=== PATIENT | female | born 1960 | race Caucasian/White ===

== ENCOUNTER 2016-11-13 06:27 | Emergency (ER) | payer MEDICAID, OTHER ==
[2016-11-13] VITALS (7 sets, daily range): BP systolic 128–187; BP diastolic 77–93; PULSE 73–86; RESP 16–22; TEMP 97.8–98.4; O2SAT 97–99
[~2016-11-13] VITALS: Ht 165.1 cm; Wt 55.0 kg
[~2016-11-13 06:27] MED LIST: LORA-373 PO; MEGE40SU PO; MORP1TAB24 PO; OMEP20TA PO; ONDA1TAB16; OXYC-392 PO; PERI8.6T PO; PROC10TA PO; RANI150T PO; VENTAER INH; [UNRECOGNIZED DRUG - OTHER] SWISH-SWAL
[2016-11-13] MEDS ORDERED: ONDANSETRON HCL 4 MG/2 ML VIAL IV ONE (06:45)
[2016-11-13] MEDS ORDERED: MORPHINE SULFATE 30 MG CONTROLLED RELEASE TAB PO ONE (06:45)
[2016-11-13] MEDS ORDERED: SODIUM CHLORID 0.9% 500 ML INJ 500 ML IV ONE (06:45)
[2016-11-13] MEDS ORDERED: HYDROmorphone HCL PF 1 MG/ML VIAL IVS ONE (06:45)
--- NOTE | 2016-11-13 06:46 | PD ---
HPI Chief Complaint: Pain: Acute or Chronic Time Seen by Provider: 06:42 (London Christensen MD) Time Seen by Provider: 07:36 (Omid Dinero MD) Travel History International Travel<30 days: No Contact w/Intl Traveler<30days: No Traveled to known affect area: No (London Christensen MD) History of Present Illness HPI So 56-year-old with a history of metastatic adenocarcinoma of the pancreas, followed by Dr. Taylor, who presents to the emergency department complaining of diffuse body pain and abdominal pain ongoing since she's been out of her extended-release morphine. She reports she spoke to Dr. Taylor, and he knows that she's been taking extra doses because of uncontrolled pain. Because of that she ran out. She's is supposed to have lab work done today to check her cell counts following chemotherapy and then is supposed to see Dr. Taylor tomorrow. She reports nausea vomiting last night. She states she's been having trouble with nausea and vomiting starting a week or so after chemotherapy. No fevers or chills. No other complaints. (London Christensen MD) History Past Medical History Narrative Medical Hepatitis C Pancreatic CVA, metastatic, on palliative chemotherapy Menopausal: Yes : 2 Para: 1 (London Christensen MD) Social History Alcohol Use: Yes (PREVIOUSLY) Tobacco Use: No (London Christensen MD) Allergies-Medications (Allergen,Severity, Reaction): Coded Allergies: Codeine (Verified Allergy, Mild, Itching, 11/13/16) Reported Meds & Prescriptions Reported Meds & Active Scripts Active Levaquin (Levofloxacin) 500 Mg Tablet 500 Mg PO DAILY 10 Days Zofran (Ondansetron HCl) 4 Mg Tab 4 Mg PO Q8HR PRN Morphine ER (Morphine Sulfate) 30 Mg Tab 30 Mg PO BID 14 Days Megestrol Liq (Megestrol Acetate) 40 Mg/Ml Susp 400 Mg PO DAILY 30 Days [Svaq-Gdhx-Pfwo Liq] 5 ML Susp 5 Ml SWISH-SWAL QID Reported Ranitidine (Ranitidine HCl) 150 Mg Tab PO DAILY Ventolin Hfa 18 GM Inh (Albuterol Sulfate) 90 Mcg/Act Aer 2 Puff INH Q4H PRN Prochlorperazine Maleate 10 Mg Tab 10 Mg PO Q4H PRN Ondansetron (Ondansetron HCl) 4 Mg Tab 1 Tab Q4HR PRN Jolie-Colace (Sennosides-Docusate Sodium) 8.6-50 Mg Tab 1 Tab PO BID Lorazepam 0.5 Mg Tab 0.5 Mg PO DIRECTED Omeprazole 20 Mg Tab 20 Mg PO DAILY Oxycodone (Oxycodone HCl) 5 Mg Tab 5 Mg PO Q4H PRN Morphine ER (Morphine Sulfate) 15 Mg Tab 15 Mg PO BID (Omid Dinero MD) Review of Systems Except as stated in HPI: all other systems reviewed are Neg (London Christensen MD ) Physical Exam Narrative GENERAL: Chronically ill appearing 56-year-old woman. Nontoxic. SKIN: Focused skin assessment warm/dry. CARDIOVASCULAR: Regular rate and rhythm. No murmur appreciated. RESPIRATORY: No accessory muscle use. Clear to auscultation. Breath sounds equal bilaterally. GASTROINTESTINAL: Abdomen soft. Mild diffuse tenderness. No distention or rebound. MUSCULOSKELETAL: No obvious deformities. Decreased muscle bulk. No edema. NEUROLOGICAL: Awake and alert. No obvious cranial nerve deficits. Motor grossly within normal limits. Normal speech. PSYCHIATRIC: Appropriate mood and affect; insight and judgment normal. (London Christensen MD) Data Data Last Documented VS Vital Signs Date Time Temp Pulse Resp B/P Pulse Ox O2 Delivery O2 Flow Rate FiO2 11/13/16 09:04 16 11/13/16 08:59 97.8 86 132/79 99 Nasal Cannula 2 (Omid Dinero MD) Orders Complete Blood Count With Diff (11/13/16 06:42) Comprehensive Metabolic Panel (11/13/16 06:42) Iv Access Insert/Monitor (11/13/16 06:42) Morphine Sr (Oramorph Sr) (11/13/16 06:45) Sodium Chlorid 0.9% 500 Ml Inj (Ns 500 M (11/13/16 06:45) Ondansetron Inj (Zofran Inj) (11/13/16 06:45) Hydromorphone Pf Inj (Dilaudid Pf Inj) (11/13/16 06:45) Chest, Pa & Lat (11/13/16 ) Urinalysis - C+S If Indicated (11/13/16 07:58) Sodium Chlor 0.9% 250 Ml Inj (Ns 250 Ml (11/13/16 08:00) Promethazine Inj (Phenergan Inj) (11/13/16 08:00) Morphine Inj (Morphine Inj) (11/13/16 09:00) Heparin Central Flush (Heparin Central F (11/13/16 09:15) Levofloxacin (Levaquin) (11/13/16 09:30) (Omid Dinero MD) Labs Laboratory Tests Test 11/13/16 11/13/16 06:51 08:30 White Blood Count 1.8 TH/MM3 Red Blood Count 3.73 MIL/MM3 Hemoglobin 11.5 GM/DL Hematocrit 34.3 % Mean Corpuscular Volume 91.8 FL Mean Corpuscular Hemoglobin 30.9 PG Mean Corpuscular Hemoglobin 33.7 % Concent Red Cell Distribution Width 15.7 % Platelet Count 87 TH/MM3 Mean Platelet Volume 8.6 FL Neutrophils (%) (Auto) 47.2 % Lymphocytes (%) (Auto) 34.3 % Monocytes (%) (Auto) 14.4 % Eosinophils (%) (Auto) 2.3 % Basophils (%) (Auto) 1.8 % Neutrophils # (Auto) 0.9 TH/MM3 Lymphocytes # (Auto) 0.6 TH/MM3 Monocytes # (Auto) 0.3 TH/MM3 Eosinophils # (Auto) 0.0 TH/MM3 Basophils # (Auto) 0.0 TH/MM3 CBC Comment AUTO DIFF Differential Total Cells 100 Counted Neutrophils % (Manual) 50 % Band Neutrophils % 4 % Lymphocytes % 28 % Monocytes % 11 % Eosinophils % 5 % Basophils % 2 % Neutrophils # (Manual) 1.0 TH/MM3 Differential Comment FINAL DIFF MANUAL Platelet Estimate LOW Platelet Morphology Comment NORMAL Red Cell Morphology Comment NORMAL Sodium Level 142 MEQ/L Potassium Level 3.9 MEQ/L Chloride Level 107 MEQ/L Carbon Dioxide Level 25.6 MEQ/L Anion Gap 9 MEQ/L Blood Urea Nitrogen 7 MG/DL Creatinine 0.58 MG/DL Estimat Glomerular Filtration 108 ML/MIN Rate Random Glucose 93 MG/DL Calcium Level 8.7 MG/DL Total Bilirubin 0.5 MG/DL Aspartate Amino Transf 52 U/L (AST/SGOT) Alanine Aminotransferase 59 U/L (ALT/SGPT) Alkaline Phosphatase 88 U/L Total Protein 6.7 GM/DL Albumin 3.2 GM/DL Urine Color YELLOW Urine Turbidity CLEAR Urine pH 6.5 Urine Specific [place] 1.011 Urine Protein NEG mg/dL Urine Glucose (UA) NEG mg/dL Urine Ketones NEG mg/dL Urine Occult Blood NEG Urine Nitrite NEG Urine Bilirubin NEG Urine Urobilinogen LESS THAN 2.0 MG/DL Urine Leukocyte Esterase NEG Urine RBC LESS THAN 1 /hpf Urine WBC 1 /hpf Urine Hyaline Casts 1 /lpf Urine Mucus FEW /lpf Microscopic Urinalysis Comment CULT NOT INDICATED (Omid Dinero MD) [facility] Medical Decision Making Medical Screen Exam Complete: Yes Emergency Medical Condition: Yes Differential Diagnosis Uncontrolled pain, leukopenia, dehydration, other Narrative Course Medical decision making 56-year-old woman presents to the emergency department with uncontrolled cancer pain related to her metastatic adenocarcinoma of the pancreas. She is due to have labs done today in follow-up with her oncologist tomorrow. We'll access her port, give her fluids pain medicine Zofran, home health caregiver her extended-release morphine. If labs are abnormal we'll discuss with her oncologist, otherwise outpatient follow-up tomorrow as planned. (London Christensen MD) Medical Screen Exam Complete: Yes Emergency Medical Condition: Yes Medical Record Reviewed: Yes Interpretation(s) Chest x-ray is negative for acute disease Urine is negative for infection White cell count 1.8 previous WBC 2.0 which dropped from 12,000 previously AST and ALTs mildly increased Differential Diagnosis Differential diagnosis chronic pain secondary to metastatic pancreatic cancer dehydration neutropenia acute infectious process Narrative Course This is a 56-year-old white female who I received as a signout from Dr. baron who has a past medical history of metastatic pancreatic cancer. Patient came to the ER because she ran out of her pain medicine. Patient states she is also longer nausea medicine. Patient takes morphine 30 mg twice a day and Zofran 4 mg as needed. He denies fever or chills but admits to cough and says that it feels different in her vaginal area but patient denies vaginal discharge. Patient just recently finished a series of medication that she states the purpose was to stimulate her white cell count. Chest x-ray is negative for acute disease UA is not consistent with infection no vaginal discharge noted on exam. Dr. al, the patient's oncologist states that she can come to the office tomorrow to receive medications to stimulate the white cell count Dr. al came to the ER to evaluate patient. Patient does have a wet cough but is in no respiratory distress patient has no wheezes or rails on exam she has a negative chest x-ray but she has a history of COPD so I will start her on a dose of Levaquin. I will also give her refills for her pain and nausea medication. Patient counseled and given reasons to return to the ER. at bedside and they both understand the clinical condition, follow-up instructions and reasons to return. Patient medicated for pain while in the ED 3 doses of narcotic analgesics with antiemetics patient also given IV fluid hydration. And 1 dose of by mouth levaquin. (Omid Dinero MD) Narrative Course Trader signing for document in draft. (Kristen Salcido MD) Physician Communication Physician Communication Dr. al (Omid Dinero MD) Diagnosis Primary Impression: Chronic pain Additional Impressions: Acute bronchitis mild dehydration Patient Instructions: COPD (Chronic Obstructive Pulmonary Disease) (DC), Chronic Abdominal Pain (ED), Dehydration (DC), General Instructions, Narcotic given in the ED Additional Instructions: Return to the ER if you develope fever shortness of breath with wheezing urinary symptoms Continue morphine as directed to control pain and Zofran as needed for nausea Finish levaquin Stay well Reschedule appointment with Dr. Al in the am to receive medication to simulate WBC count bedrest as directed return if symptoms persist or worsen Scripts Levofloxacin (Levaquin)500 Mg [id number] Mg PO DAILY 10 Days Prov:Omid Dinero MD 11/13/16 Ondansetron (Zofran)4 Mg Tab4 Mg PO Q8HR PRN (NAUSEA OR VOMITING) #20 TAB Ref 0 Prov:Omid Dinero MD 11/13/16 Morphine ER 30 Mg Tab30 Mg PO BID 14 Days Ref 0 Prov:Omid Dinero MD 11/13/16 Disposition: 01 DISCHARGE HOME Condition: Stable London Christensen MD Nov 13, 2016 06:46 Omid Dinero MD Nov 13, 2016 09:15 Kristen Salcido MD Nov 22, 2016 17:25
[2016-11-13 07:08] LABS: AUTOMATED NEUTROPHIL # 0.9 TH/MM3 (1.8-7.7); BASOPHIL % 1.8 % (0.0-2.0); EOSINOPHIL % 2.3 % (0.0-4.0); HEMATOCRIT 34.3 % (35.0-46.0); LYMPH % 34.3 % (9.0-44.0); LYMPHOCYTE # 0.6 TH/MM3 (1.0-4.8); MEAN CELL VOLUME 91.8 FL (80.0-100.0); MEAN CORPUSCULAR HEMOGLOBIN 30.9 PG (27.0-34.0); MEAN CORPUSCULAR HGB CONC 33.7 % (32.0-36.0); MONO % 14.4 % (0.0-8.0); NEUT % 47.2 % (16.0-70.0); PLATELET COUNT 87 TH/MM3 (150-450); RED BLOOD COUNT 3.73 MIL/MM3 (4.00-5.30); RED CELL DISTRIBUTION WIDTH 15.7 % (11.6-17.2); WHITE BLOOD COUNT 1.8 TH/MM3 (4.0-11.0)
[2016-11-13 07:11] LABS: HEMO FLAGS AUTO DIFF
[2016-11-13 07:19] LABS: ALT (GPT) 59 U/L (10-53); ANION GAP 9 MEQ/L (5-15); AST (GOT) 52 U/L (15-37); BICARBONATE 25.6 MEQ/L (21.0-32.0); BLOOD UREA NITROGEN 7 MG/DL (7-18); CHLORIDE 107 MEQ/L (98-107); GLOMERULAR FILTRATION RATE 108 ML/MIN (>89); POTASSIUM 3.9 MEQ/L (3.5-5.1); SODIUM (NA) 142 MEQ/L (136-145)
[2016-11-13 07:21] LABS: ALKALINE PHOSPHATASE 88 U/L (45-117); TOTAL BILIRUBIN ADULT 0.5 MG/DL (0.2-1.0)
[2016-11-13 07:52] LABS: BANDS 4 % (0-6); BASOPHILS 2 % (0-2); EOSINOPHILS 5 % (0-4); PLATELET ESTIMATE SMEAR LOW (NORMAL); PLATELET MORPHOLOGY NORMAL (NORMAL); POLYS (SEG NEUTROPHILS) 50 % (16-70); SCAN/DIFF FINAL DIFF MANUAL; WBC DIFF SAMPLE 100
[2016-11-13] MEDS ORDERED: PROMETHAZINE INJ 25 MG/ML VIAL IM ONE (08:00)
[2016-11-13] MEDS ORDERED: SODIUM CHLOR 0.9% 250 ML INJ 250 ML IV ONE (08:00)
--- NOTE | 2016-11-13 08:27 | RADRPT ---
EXAM DATE/TIME: 11/13/2016 08:20 [facility] COMPARISON: CHEST SINGLE AP, March 01, 2016, 14:58. INDICATIONS : Short of breath, chest tightness, cough. MEDICAL HISTORY : Carcinoma, pancreas. Hepatitis C. SURGICAL HISTORY : Infusaport right. ENCOUNTER: Initial ACUITY: 1 day PAIN SCORE: 0/10 LOCATION: Bilateral chest FINDINGS: PA and lateral views of the chest demonstrate the lungs to be symmetrically aerated without evidence of mass, infiltrate or effusion. The cardiomediastinal contours are unremarkable. Osseous structure s are intact. The Otzrtb-r-Maub is in good position. CONCLUSION: 1. Jrrmgi-b-Tqqu in good position. No acute cardiopulmonary findings. Duane Erickson MD on November 13, 2016 at 8:24 Board Certified Radiologist. This report was verified electronically.
[2016-11-13 08:48] LABS: BLOOD, URINE NEG (NEG); COMMENT (UR) CULT NOT INDICATED; CULTURE IF INDICATED CULT NOT INDICATED; GLUCOSE,URINE NEG (NEG); HYALINE CAST, URINE 1 /lpf (RARE); KETONE, URINE NEG (NEG); MUCUS URINE FEW /lpf (OCC); NITRITE,URINE NEG (NEG); PH, URINE 6.5 (5.0-8.5); URINE COLOR YELLOW (YELLW/STRAW)
[2016-11-13] MEDS ORDERED: MORPHINE SULFATE 8 MG/ML INJ IV PUSH ONE (09:00)
[2016-11-13] MEDS ORDERED: MORP1TAB25 PO (09:22)
[2016-11-13] MEDS ORDERED: ZOFR4TAB PO (09:23)
[2016-11-13] MEDS ORDERED: LEVA500T20 PO (09:24)
[2016-11-13] MEDS ORDERED: LEVOFLOXACIN 500 MG TAB PO SCH (09:30)
== END 2016-11-13 09:36 | disposition home or self-care (01) ==
LOC: NEPC 06:27
DX: G89.29 Other chronic pain (principal); J40 Bronchitis, not specified as acute or chronic; E86.0 Dehydration; C25.9 Malignant neoplasm of pancreas, unspecified; B19.20 Unspecified viral hepatitis C without hepatic coma; Z79.899 Other long term (current) drug therapy
CPT/HCPCS: 71020; 80053; 81001; 85007; 85027; 96361; 96372; 96374; 96375; 99284; J1170; J1642; J2270; J2405; J2550; J7040; J7050

== ENCOUNTER 2017-07-17 17:15 | Inpatient (IN) | payer MEDICAID, OTHER ==
[~2017-07-17] VITALS: Ht 165.1 cm; Wt 57.0 kg
[~2017-07-17 17:15] MED LIST changes: +LEVA500T33 PO; -LORA-373 PO; +LORA0.5T PO; +MORP1TAB25 PO; -OMEP20TA PO; +OMEP20TA93 PO; -ONDA1TAB16; +ONDA4TAB15; +ZOFR4TAB PO
[2017-07-17 17:49] VITALS: BP 156/88; PULSE 84; RESP 17; TEMP 98.9; O2SAT 97
--- NOTE | 2017-07-17 18:59 | PD ---
HPI Chief Complaint: Abdominal Pain Time Seen by Provider: 18:33 Travel History International Travel<30 days: No Contact w/Intl Traveler<30days: No Traveled to known affect area: No History of Present Illness HPI 56-year-old female with a history of stage IV pancreatic adenocarcinoma with liver metastases and hepatitis C presents to the emergency department complaining of nausea, abdominal swelling and pain that started Friday. Says that she has noticed increased swelling of her abdomen with tenderness and today she noticed some unusual colors in her stool. States her stools and white , brown and dark brown. Says she is also had orange urine but believes secondary to medication that she is taking for nausea. Says that she has been feeling more short of breath than usual despite using her inhalers. Denies fevers, chills, vomiting, chest pain, leg pain. Last BM this morning. Says she was at [place] today for radiation when she was speaking with her radiation oncologist, Dr. Frye, who suggested she come to the ED today for evaluation. Says she had a bile duct stent placed secondary to obstructive jaundice from her cancer. Says she is concerned that may be a problem with this stent as her stool has been unusual colors. Her oncologist is Dr. Taylor. [facility] Past Medical History Cancer: Yes (mass in pancreas) Cardiovascular Problems: No Chemotherapy: Yes (03/21) Diabetes: No Endocrine: No Genitourinary: No Hepatitis: Yes (c) Hiatal Hernia: No Immune Disorder: No Kidney Stones: Yes (18 YEARS AGO) Musculoskeletal: No Neurologic: Yes Psychiatric: No Reproductive: No Respiratory: No Radiation Therapy: No Thyroid Disease: No Menopausal: Yes : 2 Para: 1 : 1 Past Surgical History Abdominal Surgery: Yes (liver biopsy, pancreas biopsy, lymph node removed) Cardiac Surgery: No Ear Surgery: No Endocrine Surgery: No Eye Surgery: No Genitourinary Surgery: No Gynecologic Surgery: No Joint Replacement: No Oral Surgery: No Thoracic Surgery: Yes (right breast biopsy) Tonsillectomy: Yes Other Surgery: Yes (BILIARY STENT PLACEMENT, R BREAST BIOPSY) Social History Alcohol Use: Yes (PREVIOUSLY) Tobacco Use: No Substance Use: No Allergies-Medications (Allergen,Severity, Reaction): Coded Allergies: codeine (Unverified Allergy, Mild, Itching, 07/17/17) Reported Meds & Prescriptions Reported Meds & Active Scripts Active Reported Colace (Docusate Sodium) 100 Mg Capsule 100 Mg PO HS Ventolin Hfa 18 GM Inh (Albuterol Sulfate) 90 Mcg/Act Aer 2 Puff INH Q4H PRN Omeprazole 20 Mg Tab 20 Mg PO DAILY Oxycodone (Oxycodone HCl) 5 Mg Tab 5 Mg PO BID PRN Morphine ER (Morphine Sulfate) 15 Mg Tab 15 Mg PO BID Review of Systems Except as stated in HPI: all other systems reviewed are Neg Physical Exam Narrative GENERAL: WD, WN in mild distress SKIN: Warm and dry. No rashes HEAD: Atraumatic. Normocephalic. EYES: Pupils equal and round. No scleral icterus. No injection or drainage. ENT: No nasal bleeding or discharge. Mucous membranes pink and moist. NECK: Trachea midline. No JVD. CARDIOVASCULAR: Regular rate and rhythm. RESPIRATORY: No accessory muscle use. Clear to auscultation. Breath sounds equal bilaterally. GASTROINTESTINAL: Abdomen distended, TTP to percussion and palpation. No obvious masses. no rebound tenderness. No CVAT. MUSCULOSKELETAL: Extremities without clubbing, cyanosis, or edema. No obvious deformities. No edema, jim's sign negative NEUROLOGICAL: Awake and alert. No obvious cranial nerve deficits. Motor grossly within normal limits. Five out of 5 muscle strength in the arms and legs. Normal speech. PSYCHIATRIC: Appropriate mood and affect; insight and judgment normal. Data Data Last Documented VS Vital Signs Date Time Temp Pulse Resp B/P (MAP) Pulse Ox O2 Delivery O2 Flow Rate FiO2 07/17/17 19:00 18 07/17/17 17:49 98.9 84 156/88 (110) 97 Orders Orders Complete Blood Count With Diff (07/17/17 18:47) Comprehensive Metabolic Panel (07/17/17 18:47) Prothrombin Time / Inr (Pt) (07/17/17 18:47) Act Partial Throm Time (Ptt) (07/17/17 18:47) Urinalysis - C+S If Indicated (07/17/17 18:47) Ct Abd/Pel W Iv Contrast(Rout) (07/17/17 18:47) NPO (07/17/17 18:47) Electrocardiogram (07/17/17 18:47) Chest, Pa & Lat (07/17/17 ) Troponin I (07/17/17 18:47) Ckmb (Isoenzyme) Profile (07/17/17 18:47) CKMB (07/17/17 19:10) CKMB% (07/17/17 19:10) Iohexol 350 Inj (Omnipaque 350 Inj) (07/17/17 20:10) Sodium Chlor 0.9% 1000 Ml Inj (Ns 1000 M (07/17/17 20:45) Morphine Inj (Morphine Inj) (07/17/17 20:45) Admit Order (Ed Use Only) (07/17/17 21:14) Labs Laboratory Tests Test 07/17/17 19:10 07/17/17 20:39 White Blood Count 2.9 TH/MM3 Red Blood Count 3.28 MIL/MM3 Hemoglobin 10.9 GM/DL Hematocrit 32.1 % Mean Corpuscular Volume 97.8 FL Mean Corpuscular Hemoglobin 33.1 PG Mean Corpuscular Hemoglobin Concent 33.8 % Red Cell Distribution Width 15.2 % Platelet Count 93 TH/MM3 Mean Platelet Volume 8.4 FL Neutrophils (%) (Auto) 67.0 % Lymphocytes (%) (Auto) 16.2 % Monocytes (%) (Auto) 11.8 % Eosinophils (%) (Auto) 3.8 % Basophils (%) (Auto) 1.2 % Neutrophils # (Auto) 2.0 TH/MM3 Lymphocytes # (Auto) 0.5 TH/MM3 Monocytes # (Auto) 0.3 TH/MM3 Eosinophils # (Auto) 0.1 TH/MM3 Basophils # (Auto) 0.0 TH/MM3 CBC Comment AUTO DIFF Differential Comment AUTO DIFF CONFIRMED Platelet Estimate LOW Platelet Morphology Comment NORMAL Prothrombin Time 15.2 SEC Prothromb Time International Ratio 1.5 RATIO Activated Partial Thromboplast Time 34.0 SEC Blood Urea Nitrogen 10 MG/DL Creatinine 0.47 MG/DL Random Glucose 103 MG/DL Total Protein 6.5 GM/DL Albumin 2.8 GM/DL Calcium Level 8.3 MG/DL Alkaline Phosphatase 105 U/L Aspartate Amino Transf (AST/SGOT) 51 U/L Alanine Aminotransferase (ALT/SGPT) 26 U/L Total Bilirubin 1.1 MG/DL Sodium Level 140 MEQ/L Potassium Level 3.6 MEQ/L Chloride Level 103 MEQ/L Carbon Dioxide Level 28.2 MEQ/L Anion Gap 9 MEQ/L Estimat Glomerular Filtration Rate 137 ML/MIN Total Creatine Kinase 102 U/L Creatine Kinase MB 1.5 NG/ML Troponin I LESS THAN 0.02 NG/ML Urine Color YELLOW Urine Turbidity CLEAR Urine pH 6.0 Urine Specific [place] 1.022 Urine Protein TRACE mg/dL Urine Glucose (UA) NEG mg/dL Urine Ketones NEG mg/dL Urine Occult Blood NEG Urine Nitrite NEG Urine Bilirubin NEG Urine Urobilinogen 4.0 MG/DL Urine Leukocyte Esterase NEG Urine RBC 1 /hpf Urine WBC 4 /hpf Urine Squamous Epithelial Cells 1 /hpf Urine Amorphous Sediment RARE Urine Hyaline Casts 1 /lpf Urine Mucus MANY /lpf Microscopic Urinalysis Comment CULT NOT INDICATED MDM Medical Decision Making Medical Screen Exam Complete: Yes Emergency Medical Condition: Yes Differential Diagnosis ascites, SBO, dehydration, constipation Narrative Course 56-year-old female with a history of stage IV pancreatic adenocarcinoma with liver metastases liver metastasis and bile ducts duct obstruction status post stent placement presents emergency department complaining of abdominal pain and swelling with associated abnormal stool since about Friday. Says that she has chronic nausea and shortness of breath but has somewhat worsened since the onset of her symptoms. She denies fever, chills, chest pain, vomiting, diarrhea. Says she has never had a paracentesis or other procedure to remove fluid from her abdomen. Vital signs stable. Physical exam findings consistent with distended abdomen, tenderness palpation localized to the left upper quadrant. No CVA tenderness. CBC & BMP Diagram 07/17/17 19:10 Total Protein 6.5, Albumin 2.8 L, Calcium Level 8.3 L, Alkaline Phosphatase 105 , Aspartate Amino Transf (AST/SGOT) 51 H, Alanine Aminotransferase (ALT/SGPT) 26 , Total Bilirubin 1.1 H It appears that her pancytopenia is chronic. Total bilirubin 1.1, elevated from July [address] abdomen pelvis demonstrates conclusion worsening metastatic disease of the liver, moderate to large ascites has developed, exact etiology uncertain. Splenomegaly not significantly changed. Pancreatic head mass similar in size to prior study. However, there is increasing biliary dilatation. The common bile duct is currently about 14 mm. Patient will be admitted for abdominal pain with ascites, increasing biliary dilatation status post biliary stent placement in 2015. Diagnosis Primary Impression: Ascites Qualified Codes: R18.0 - Malignant ascites Additional Impression: Dilation of biliary tract Admitting Information Admitting Physician Requests: Admit Condition: Stable Fatemeh Holman Jul 17, 2017 18:59
[2017-07-17] MEDS ORDERED: COLA100C5 PO (19:08)
[2017-07-17 19:23] LABS: BASOPHIL % 1.2 % (0.0-2.0); EOSINOPHIL # 0.1 TH/MM3 (0-0.4); EOSINOPHIL % 3.8 % (0.0-4.0); HEMATOCRIT 32.1 % (35.0-46.0); HEMOGLOBIN 10.9 GM/DL (11.6-15.3); LYMPH % 16.2 % (9.0-44.0); LYMPHOCYTE # 0.5 TH/MM3 (1.0-4.8); MEAN CELL VOLUME 97.8 FL (80.0-100.0); MEAN CORPUSCULAR HEMOGLOBIN 33.1 PG (27.0-34.0); MEAN CORPUSCULAR HGB CONC 33.8 % (32.0-36.0); MEAN PLATELET VOLUME 8.4 FL (7.0-11.0); MONO % 11.8 % (0.0-8.0); MONOCYTE # 0.3 TH/MM3 (0-0.9); PLATELET COUNT 93 TH/MM3 (150-450); RED BLOOD COUNT 3.28 MIL/MM3 (4.00-5.30); RED CELL DISTRIBUTION WIDTH 15.2 % (11.6-17.2); WHITE BLOOD COUNT 2.9 TH/MM3 (4.0-11.0)
[2017-07-17 19:43] LABS: ALBUMIN 2.8 GM/DL (3.4-5.0); AST (GOT) 51 U/L (15-37); BICARBONATE 28.2 MEQ/L (21.0-32.0); BLOOD UREA NITROGEN 10 MG/DL (7-18); CALCIUM 8.3 MG/DL (8.5-10.1); CHLORIDE 103 MEQ/L (98-107); CREATININE 0.47 MG/DL (0.50-1.00); GLOMERULAR FILTRATION RATE 137 ML/MIN (>89); GLUCOSE,RANDOM 103 MG/DL (74-106); SODIUM (NA) 140 MEQ/L (136-145)
--- NOTE | 2017-07-17 19:43 | RADRPT ---
EXAM DATE/TIME: 07/17/2017 19:20 [facility] COMPARISON: No previous studies available for comparison. INDICATIONS : Shortness of breath. MEDICAL HISTORY : Carcinoma, pancreas. SURGICAL HISTORY : Infusa port ENCOUNTER: Initial ACUITY: 2 months PAIN SCORE: 0/10 LOCATION: Bilateral chest FINDINGS: PA and lateral views of the chest demonstrate the lungs to be symmetrically aerated without evidence of mass, infiltrate or effusion. The cardiomediastinal contours are unremarkable. Osseous structure s are intact. Right internal jugular [id number] catheter with tip in the right atrium again noted. CONCLUSION: No acute cardiopulmonary disease demonstrated. Diego Wilburn MD on July 17, 2017 at 19:40 Board Certified Radiologist. This report was verified electronically.
[2017-07-17 19:44] LABS: ALT (GPT) 26 U/L (10-53)
[2017-07-17 19:45] LABS: INTERNATIONAL NORMALIZED RATIO 1.5 RATIO; PROTHROMBIN TIME - PATIENT 15.2 SEC (9.8-11.6)
[2017-07-17 19:48] LABS: ALKALINE PHOSPHATASE 105 U/L (45-117); TOTAL BILIRUBIN ADULT 1.1 MG/DL (0.2-1.0); TOTAL PROTEIN 6.5 GM/DL (6.4-8.2); TROPONIN I LESS THAN 0.02 NG/ML (0.02-0.05)
[2017-07-17] MEDS ORDERED: IOHEXOL 350 MG/ML 10 ML VIAL (for RAD DIAG) IVCONTRAST ONE (20:10)
--- NOTE | 2017-07-17 20:37 | RADRPT ---
EXAM DATE/TIME: 07/17/2017 20:09 This report includes an Addendum and supersedes previous reports for this exam. [facility] COMPARISON: No previous studies available for comparison. INDICATIONS : Left upper region pain, history of pancreatic cancer. IV CONTRAST: 96 cc Omnipaque 350 (iohexol) IV ORAL CONTRAST: No oral contrast ingested. RADIATION DOSE: 10.27 CTDIvol (mGy) MEDICAL HISTORY : Hepatitis C. Carcinoma, pancreas. SURGICAL HISTORY : Lymph node sx. ENCOUNTER: Initial ACUITY: 1 day PAIN SCALE: 5/10 LOCATION: Left upper quadrant TECHNIQUE: Volumetric scanning of the abdomen and pelvis was performed. Using automated exposure control and ad justment of the mA and/or kV according to patient size, radiation dose was kept as low as reasonably achievable to obtain optimal diagnostic quality images. DICOM format image data is available electro nically for review and comparison. FINDINGS: There is a vague pancreatic head mass again noted, measures approximately 23 mm in size and not signi ficantly changed. Increased common bile duct caliber, 14 mm at the bin hepatis. Lesion of liver dome larger, currently 13 mm. Left hepatic lobe lesion is larger, currently 28 mm, pr eviously 16 mm. Lesion posteriorly right hepatic lobe not significantly changed, 14 mm on series 2 im age 16. Splenomegaly again noted, not significantly changed. Moderate to large ascites has developed, exact etiology uncertain. I don't clearly see peritoneal or omental disease. Several sub-3 mm nonobstructing stones of the left lower pole are unchanged. CONCLUSION: 1. Worsening metastatic disease of the liver. 2. Moderate to large ascites has developed, exact etiology uncertain. 3. Splenomegaly not significantly changed. 4. Pancreatic head mass similar in size to the prior study. However, there is increasing biliary dila tation. The common bile duct is currently about 14 mm. Diego Wilburn MD on July 17, 2017 at 20:30 Board Certified Radiologist. This report was verified electronically. ADDENDUM: Comparison is 05/26/2017 Diego Wilburn MD on July 17, 2017 at 20:36 Board Certified Radiologist. This report was verified electronically.
[2017-07-17] MEDS ORDERED: SODIUM CHLOR 0.9% 1000 ML INJ 1,000 ML IV ONE (20:45)
[2017-07-17] MEDS ORDERED: MORPHINE SULFATE 4 MG/ML INJ IV PUSH ONE (20:45)
[2017-07-17 20:56] LABS: AMORPHOUS SEDIMENT, URINE RARE; BILIRUBIN, URINE NEG (NEG); BLOOD, URINE NEG (NEG); GLUCOSE,URINE NEG (NEG); HYALINE CAST, URINE 1 /lpf (RARE); KETONE, URINE NEG (NEG); MUCUS URINE MANY /lpf (OCC); NITRITE,URINE NEG (NEG); SQUAMOUS EPITHELIAL CELL URINE 1 /hpf (0-5); URINE COLOR YELLOW (YELLW/STRAW); URINE LEUKOCYTE ESTERASE NEG (NEG)
[2017-07-17] MEDS ORDERED: ALBUTEROL SULFATE 90 MCG/ACT HFA 8 GM INHALER INH PRN (22:45)
[2017-07-17] MEDS ORDERED: MAGNESIUM HYDROXIDE SUSP 30 ML CUP PO PRN (22:45)
[2017-07-17] MEDS ORDERED: ONDANSETRON HCL 4 MG/2 ML VIAL IVP PRN (22:45)
[2017-07-17] MEDS ORDERED: SENNOSIDES 8.6 MG TAB PO PRN (22:45)
[2017-07-17] MEDS ORDERED: LACTULOSE SYRUP 20 GM/30 ML CUP PO PRN (22:45)
[2017-07-17] MEDS ORDERED: SODIUM CHLORIDE 0.9% FLUSH 10 ML FLUSH IV FLUSH PRN (22:45)
[2017-07-17] MEDS ORDERED: BISACODYL 10 MG SUPP RECTAL PRN (22:45)
[2017-07-17] MEDS ORDERED: NALOXONE HCL 0.4 MG/ML AMP IV PUSH PRN (22:45)
[2017-07-18] VITALS (8 sets, daily range): BP systolic 108–143; BP diastolic 63–90; PULSE 63–77; RESP 16–21; TEMP 96.9–98.7; O2SAT 0–100
--- NOTE | 2017-07-18 00:50 | HHI.HP ---
[facility] No Primary Care Physician Admission Diagnosis Ascites, liver CA, biliary dilatation s/p biliary stent placement Diagnoses: Travel History International Travel<30 Days: No Contact w/Intl Traveler <30 Da: No Traveled to Known Affected Are: No History of Present Illness 56-year-old female with a past medical history significant for pancreatic cancer presents to the emergency department for abdominal pain/distention. Patient reports that her abdominal pain and distention started around Friday. She reports it has gotten progressively worse. She was seen by her radiation oncologist, Dr. Mendoza, earlier today where she underwent radiation therapy. She reports he advised her to come to the emergency department for further evaluation. Her oncologist is Dr. De La Cruz. She is status post biliary duct stent for obstructive jaundice. Patient also complains of beige stools that began today. She denies any fever/chills. Denies shortness of breath or chest pain. No nausea/vomiting. Review of Systems Except as stated in HPI: all other systems reviewed are Neg Past Family Social History Past Medical History Pancreatic cancer Past Surgical History Port placement Biliary duct stent Reported Medications Reported Meds & Active Scripts Active Reported Colace (Docusate Sodium) 100 Mg Capsule 100 Mg PO HS Ventolin Hfa 18 GM Inh (Albuterol Sulfate) 90 Mcg/Act Aer 2 Puff INH Q4H PRN Omeprazole 20 Mg Tab 20 Mg PO DAILY Oxycodone (Oxycodone HCl) 5 Mg Tab 5 Mg PO BID PRN Morphine ER (Morphine Sulfate) 15 Mg Tab 15 Mg PO BID Allergies: Coded Allergies: codeine (Unverified Allergy, Mild, Itching, 07/17/17) Family History Father with diabetes mellitus, mother with colon cancer Social History Quit smoking and alcohol 2 years ago. Occasional marijuana. Denies all other illicit drugs. Physical Exam Vital Signs Vital Signs Date Time Temp Pulse Resp B/P (MAP) Pulse Ox O2 Delivery O2 Flow Rate FiO2 07/17/17 19:00 18 07/17/17 17:49 98.9 84 17 156/88 (110) 97 Physical Exam GENERAL: Cachectic, female lying in bed SKIN: No rashes, ecchymoses or lesions. Cool and dry. HEAD: Atraumatic. Normocephalic. No temporal or scalp tenderness. EYES: Pupils equal round and reactive. Extraocular motions intact. No scleral icterus. No injection or drainage. ENT: Nose without bleeding, purulent drainage or septal hematoma. Throat without erythema, tonsillar hypertrophy or exudate. Uvula midline. Airway patent. NECK: Trachea midline. No JVD or lymphadenopathy. Supple, nontender, no meningeal signs. CARDIOVASCULAR: Regular rate and rhythm without murmurs, gallops, or rubs. RESPIRATORY: Clear to auscultation. Breath sounds equal bilaterally. No wheezes , rales, or rhonchi. GASTROINTESTINAL: Abdomen soft, diffusely tender to palpation worse in the upper quadrant, distended. MUSCULOSKELETAL: Extremities without clubbing, cyanosis, or edema. No joint tenderness, effusion, or edema noted. No calf tenderness. NEUROLOGICAL: Awake and alert. Cranial nerves II through XII intact. Motor and sensory grossly within normal limits. Normal speech. Laboratory Laboratory Tests Test 07/17/17 19:10 07/17/17 20:39 White Blood Count 2.9 Red Blood Count 3.28 Hemoglobin 10.9 Hematocrit 32.1 Mean Corpuscular Volume 97.8 Mean Corpuscular Hemoglobin 33.1 Mean Corpuscular Hemoglobin Concent 33.8 Red Cell Distribution Width 15.2 Platelet Count 93 Mean Platelet Volume 8.4 Neutrophils (%) (Auto) 67.0 Lymphocytes (%) (Auto) 16.2 Monocytes (%) (Auto) 11.8 Eosinophils (%) (Auto) 3.8 Basophils (%) (Auto) 1.2 Neutrophils # (Auto) 2.0 Lymphocytes # (Auto) 0.5 Monocytes # (Auto) 0.3 Eosinophils # (Auto) 0.1 Basophils # (Auto) 0.0 CBC Comment AUTO DIFF Differential Comment AUTO DIFF CONFIRMED Platelet Estimate LOW Platelet Morphology Comment NORMAL Prothrombin Time 15.2 Prothromb Time International Ratio 1.5 Activated Partial Thromboplast Time 34.0 Blood Urea Nitrogen 10 Creatinine 0.47 Random Glucose 103 Total Protein 6.5 Albumin 2.8 Calcium Level 8.3 Alkaline Phosphatase 105 Aspartate Amino Transf (AST/SGOT) 51 Alanine Aminotransferase (ALT/SGPT) 26 Total Bilirubin 1.1 Sodium Level 140 Potassium Level 3.6 Chloride Level 103 Carbon Dioxide Level 28.2 Anion Gap 9 Estimat Glomerular Filtration Rate 137 Total Creatine Kinase 102 Creatine Kinase MB 1.5 Troponin I LESS THAN 0.02 Urine Color YELLOW Urine Turbidity CLEAR Urine pH 6.0 Urine Specific [place] 1.022 Urine Protein TRACE Urine Glucose (UA) NEG Urine Ketones NEG Urine Occult Blood NEG Urine Nitrite NEG Urine Bilirubin NEG Urine Urobilinogen 4.0 Urine Leukocyte Esterase NEG Urine RBC 1 Urine WBC 4 Urine Squamous Epithelial Cells 1 Urine Amorphous Sediment RARE Urine Hyaline Casts 1 Urine Mucus MANY Microscopic Urinalysis Comment CULT NOT INDICATED Result Diagram: 07/17/17190907/17/171909 Caprini VTE Risk Assessment Caprini VTE Risk Assessment: Mod/High Risk (score >= 2) Caprini Risk Assessment Model Point Value = 1 Point Value = 2 Point Value = 3 Point Value = 5 Age 41-60 Minor surgery BMI > 25 kg/m2 Swollen legs Varicose veins or History of unexplained or recurrent spontaneous Oral contraceptives or hormone replacement Sepsis (< 1 month) Serious lung disease, including pneumonia (< 1 month) Abnormal pulmonary function Acute myocardial infarction Congestive heart failure (< 1 month) History of inflammatory bowel disease Medical patient at bed rest Age 61-74 Arthroscopic surgery Major open surgery (> 45 min) Laparoscopic surgery (> 45 min) Malignancy Confined to bed (> 72 hours) Immobilizing plaster cast Central venous access Age >= 75 History of VTE Family history of VTE Factor V Leiden Prothrombin [id number] Lupus anticoagulant Anticardiolipin antibodies Elevated serum homocysteine Heparin-induced thrombocytopenia Other congenital or acquired thrombophilia Stroke (< 1 month) Elective arthroplasty Hip, pelvis, or leg fracture Acute spinal cord injury (< 1 month) Prophylaxis Regimen Total Risk Factor Score Risk Level Prophylaxis Regimen 0-1 Low Early ambulation 2 Moderate Order ONE of the following: *Sequential Compression Device (SCD) *Heparin 5000 units SQ BID 3-4 Higher Order ONE of the following medications: *Heparin 5000 units SQ TID *Enoxaparin/Lovenox 40 mg SQ daily (WT < 150 kg, CrCl > 30 mL/min) *Enoxaparin/Lovenox 30 mg SQ daily (WT < 150 kg, CrCl > 10-29 mL/min) *Enoxaparin/Lovenox 30 mg SQ BID (WT < 150 kg, CrCl > 30 mL/min) AND/OR *Sequential Compression Device (SCD) 5 or more Highest Order ONE of the following medications: *Heparin 5000 units SQ TID (Preferred with Epidurals) *Enoxaparin/Lovenox 40 mg SQ daily (WT < 150 kg, CrCl > 30 mL/min) *Enoxaparin/Lovenox 30 mg SQ daily (WT < 150 kg, CrCl > 10-29 mL/min) *Enoxaparin/Lovenox 30 mg SQ BID (WT < 150 kg, CrCl > 30 mL/min) AND *Sequential Compression Device (SCD) Assessment and Plan Assessment and Plan Assessment/plan: 1. Ascites/abdominal pain/abdominal distention CT of the abdomen/pelvis significant for new onset moderate to large ascites Radiology consulted for ultrasound-guided paracentesis Continue home oxycodone/morphine Dilaudid for breakthrough pain 2. Pancreatic cancer Patient's oncologist, Dr. De La Cruz consulted, appreciate recommendations FEN NPO Electrolytes: Replete when necessary Holding pharmacologic anticoagulation in anticipation of paracentesis Physician Certification 2 Midnight Certification Type: Admission for Inpatient Services Order for Inpatient Services The services are ordered in accordance with Medicare regulations or non- Medicare payer requirements, as applicable. In the case of services not specified as inpatient-only, they are appropriately provided as inpatient services in accordance with the 2-midnight benchmark. Estimated LOS (days): 2 2 days is the estimated time the patient will need to remain in the hospital, assuming treatment plan goals are met and no additional complications. Post-Hospital Plan: Not yet determined Hedy Black MD Jul 18, 2017 00:50
[2017-07-18] MEDS: HYDROmorphone HCL PF 2 MG/ML VIAL IV PUSH PRN ×2 (01:29→09:47)
[2017-07-18 08:38] LABS: AUTOMATED NEUTROPHIL # 1.1 TH/MM3 (1.8-7.7); BASOPHIL % 1.1 % (0.0-2.0); EOSINOPHIL # 0.1 TH/MM3 (0-0.4); EOSINOPHIL % 4.8 % (0.0-4.0); HEMATOCRIT 29.4 % (35.0-46.0); LYMPH % 17.7 % (9.0-44.0); LYMPHOCYTE # 0.3 TH/MM3 (1.0-4.8); MEAN CELL VOLUME 98.4 FL (80.0-100.0); MEAN CORPUSCULAR HEMOGLOBIN 33.4 PG (27.0-34.0); MEAN PLATELET VOLUME 8.2 FL (7.0-11.0); MONOCYTE # 0.2 TH/MM3 (0-0.9); NEUT % 63.4 % (16.0-70.0); PLATELET COUNT 67 TH/MM3 (150-450); RED BLOOD COUNT 2.99 MIL/MM3 (4.00-5.30); RED CELL DISTRIBUTION WIDTH 15.1 % (11.6-17.2); WHITE BLOOD COUNT 1.8 TH/MM3 (4.0-11.0)
[2017-07-18 09:04] LABS: ALBUMIN 2.4 GM/DL (3.4-5.0); AST (GOT) 47 U/L (15-37); BICARBONATE 26.9 MEQ/L (21.0-32.0); BLOOD UREA NITROGEN 9 MG/DL (7-18); CALCIUM 8.2 MG/DL (8.5-10.1); CHLORIDE 107 MEQ/L (98-107); CREATININE 0.39 MG/DL (0.50-1.00); GLOMERULAR FILTRATION RATE 170 ML/MIN (>89); GLUCOSE,RANDOM 83 MG/DL (74-106); SODIUM (NA) 141 MEQ/L (136-145)
[2017-07-18 09:05] LABS: ALT (GPT) 23 U/L (10-53)
[2017-07-18 09:07] LABS: ALKALINE PHOSPHATASE 96 U/L (45-117); TOTAL BILIRUBIN ADULT 0.9 MG/DL (0.2-1.0); TOTAL PROTEIN 5.5 GM/DL (6.4-8.2)
[2017-07-18] MEDS: SODIUM CHLORIDE 0.9% FLUSH 10 ML FLUSH IV FLUSH SCH ×2 (09:46→21:22)
[2017-07-18 09:47] LABS: BANDS 4 % (0-6); BASOPHILS 2 % (0-2); LYMPHOCYTES 7 % (9-44); MONOCYTES 6 % (0-8); NEUTROPHIL # MANUAL DIFF 1.4 TH/MM3 (1.8-7.7); POLYS (SEG NEUTROPHILS) 75 % (16-70)
--- NOTE | 2017-07-18 10:12 | RADRPT ---
EXAM DATE/TIME: 07/18/2017 08:19 [place] COMPARISON: No previous studies available for comparison. EXTERNAL COMPARISON: [facility], CT ABDOMEN & PELVIS W CONTRAST, Jun 03 2016. [facility], CT ABDOMEN W & W/O CONTRAST, December 14, 2015. [facility], MRI ABDOMEN W & W/O CONTRAST, November 17, 2015. INDICATIONS : Ascites. MEDICAL HISTORY : Pancreatic mass. Chemotherapy. Hepatitis C. SURGICAL HISTORY : Liver biopsy. Pancreas biopsy. Lymph node removed. Right breast biopsy. biliary stent placement. ENCOUNTER: Subsequent ACUITY: 1 day PAIN SCORE: 3/10 LOCATION: Left lower quadrant FLUID: Total volume of 1400 cc of clear, yellow fluid was removed. Fluid was sent to lab for ordered studies. Post procedure scanning reveals no hematoma or other complication. TECHNIQUE: 1. Ultrasound guidance for abdominal paracentesis. 2. Paracentesis. The risks, benefits, and alternatives to ultrasound guided paracentesis were explained to the patient in detail including the risk of bleeding and infection. Written and verbal informed consent was obt ained. With the patient on the ultrasound table, ultrasound imaging was used to select the most appropriate approach for paracentesis. Overlying skin was prepped and draped in the usual sterile fashion and wi th a local anesthetic, a dermatotomy was made with an 11 blade scalpel. A 6 Khmer [id number] ca theter was introduced into the peritoneal cavity and fluid was collected. The patient tolerated the procedure well and left the ultrasound suite in stable condition. CONCLUSION: Uncomplicated ultrasound guided paracentesis. Lit Bravo MD on July 18, 2017 at 10:09 Board Certified Radiologist. This report was verified electronically.
[2017-07-18] MEDS ORDERED: ALBUMIN 25% INJ 0 ML IV ONE (10:15)
[2017-07-18] MEDS: PANTOPRAZOLE SOD 20 MG DELAYED RELEASE TAB PO SCH (10:33)
[2017-07-18] MEDS: MORPHINE SULFATE 15 MG CONTROLLED RELEASE TAB PO SCH ×2 (10:34→21:23)
--- NOTE | 2017-07-18 11:20 | EKG ---
Date Performed: 07/17/2017 Time Performed: 20:01:05 PTAGE: 56 years EKG: Sinus rhythm MARKED LEFT AXIS DEVIATION LOW QRS VOLTAGE IN PRECORDIAL LEADS ABNORMAL ECG PREVIOUS TRACING : 03/01/2016 16.46 Since the previous tracing, no significant change noted DOCTOR: Lui Leija Interpretating Date/Time 07/18/2017 11:17:44
[2017-07-18] MEDS ORDERED: LIDOCAINE HCL 1% 20 ML VIAL ONE (11:25)
[2017-07-18 11:27] LABS: TOTAL PROTEIN,PERITONEAL FLUID 0.9 GM/DL
[2017-07-19 00:22] VITALS: BP 118/66; PULSE 67; RESP 20; TEMP 97.4; O2SAT 96
--- NOTE | 2017-07-19 01:03 | MB ---
cc: Kailash De La Cruz MD DATE OF CONSULT: 07/19/2017 REASON FOR CONSULTATION: The patient with a history of a stage IV pancreatic adenocarcinoma, who presented to the emergency department with abdominal distention. HISTORY OF PRESENT ILLNESS: This is a 56-year-old female who was diagnosed with a pancreatic adenocarcinoma in 11/2015. She unfortunately has metastatic disease. She has undergone multiple lines of treatment. She is currently being treated with Abraxane and Gemzar. However, this treatment is on hold due to SPR treatments to the liver mets. She saw Dr. Mendoza in the radiation oncology clinic yesterday. She was found to have abdominal distention. The patient was sent to the emergency room for evaluation. She was admitted to the hospital. She has undergone abdominal imaging which showed numerous metastatic lesions in the liver and also abdominal ascites. The patient has undergone paracentesis. She is currently resting comfortably in the bed. She states that she feels much better after receiving the paracentesis. She denies any pain. She has not had any nausea, vomiting. No fevers or chills. She has not had any diarrhea. REVIEW OF SYSTEMS: A comprehensive 14-point review of systems was completed which is negative except as described in HPI. PAST MEDICAL HISTORY: Stage IV pancreatic adenocarcinoma with liver mets, history of hepatitis C. PAST SURGICAL HISTORY: Port placement, biliary stent placement, biopsy of the pancreatic lesion. FAMILY HISTORY: Reviewed and is significant for colon cancer on the mother's side. Father had diabetes. SOCIAL HISTORY: She quit smoking cigarettes and alcohol 2 years ago. She occasionally uses marijuana. No other illicit drug use. MEDICATIONS: Colace 100 mg p.o. daily, albuterol 2 puffs INH every 4 hours p.r.n., omeprazole 20 mg p.o. daily, oxycodone 5 mg p.o. b.i.d., morphine 15 mg p.o. b.i.d. ALLERGIES: SHE IS ALLERGIC TO CODEINE. PHYSICAL EXAMINATION: VITAL SIGNS: Blood pressure is 121/77, pulse is in the 60s, and temperature is 97.8. GENERAL: Well-developed, well-nourished, thin female in no apparent distress. HEENT: Pupils equal, round, reactive to light, EOMI, no thrush or lesions. NECK: Supple. No JVD. No bruits. No lymphadenopathy. CHEST: Clear to auscultation bilaterally. CARDIAC: S1, S2. Regular rate and rhythm. ABDOMEN: Soft, nontender, nondistended. Bowel sounds are present. EXTREMITIES: Without an edema, erythema or cyanosis. SKIN: Without any petechiae, lesions or bruises. NEUROLOGIC: No focal deficits. PSYCHIATRIC: Mood and affect are appropriate. IMAGING: CT scan of the abdomen and pelvis was reviewed, which showed worsening metastatic disease of the liver. There was moderate to large size ascites in the abdomen, pancreatic head mass appeared stable in size compared to previous CT scans. ASSESSMENT AND PLAN: 1. This is a 56-year-old female with a history of a stage IV pancreatic adenocarcinoma with metastasis to the liver. She has unresectable disease. She presents to the emergency department with abdominal distention. CT imaging showed moderate to large size ascites. She has undergone paracentesis. Clinically, she feels better. I reviewed the CT scan. The lesion in the liver dome is slightly larger currently 13 mm. There is a left hepatic lobe lesion, which is also slightly bigger at 28 mm, previously was 16 mm. There is a lesion posteriorly in the right hepatic lobe that has not changed. The patient is currently receiving stereotactic radiation treatments to these lesions. It is unclear whether this is inflammation and post-treatment effect around these lesions versus true disease progression. I have discussed this with the patient. Clinically, she is doing better post-paracentesis. I have no objections to discharging her if she remains medically stable. She will followup with me in the clinic. 2. Stage IV pancreatic adenocarcinoma. Further treatment to be given in the outpatient setting. Thank you for allowing me to participate in the care of this patient. The patient should followup with me in the clinic in 1-2 weeks. MD JADYN Medrano/rt , 12:28 AM , 01:01 AM
[2017-07-19] MEDS: HYDROmorphone HCL PF 2 MG/ML VIAL IV PUSH PRN (06:53)
[2017-07-19 08:00] VITALS: BP 122/72; PULSE 70; RESP 18; TEMP 98.4; O2SAT 96
[2017-07-19] MEDS: SODIUM CHLORIDE 0.9% FLUSH 10 ML FLUSH IV FLUSH SCH (09:03)
[2017-07-19] MEDS: PANTOPRAZOLE SOD 20 MG DELAYED RELEASE TAB PO SCH (09:03)
[2017-07-19] MEDS: MORPHINE SULFATE 15 MG CONTROLLED RELEASE TAB PO SCH (09:03)
--- NOTE | 2017-07-19 11:37 | HHI.PR ---
Subjective Remarks Follow-up ascites. She feels much better. Complains of tolerable pain over paracentesis site with no evidence of infection. She is tolerating diet and wants to go home discussed with RN Objective Vitals Vital Signs Date Time Temp Pulse Resp B/P (MAP) Pulse Ox O2 Delivery O2 Flow Rate FiO2 07/19/17 08:00 98.4 70 18 122/72 (89) 96 07/19/17 00:22 97.4 67 20 118/66 (83) 96 07/18/17 20:00 98.7 76 20 132/75 (94) 96 07/18/17 16:31 18 07/18/17 16:00 96.9 74 18 143/86 (105) 95 07/18/17 13:03 67 15 108/64 (79) 97 07/18/17 12:26 69 16 121/77 (92) 98 Room Air I/O 07/18/17 07/18/17 07/18/17 07/19/17 07/19/17 07/19/17 07:00 15:00 23:00 07:00 15:00 23:00 Intake Total 1000 ml 480 ml 480 ml Output Total 1 ml Balance 1000 ml 480 ml 479 ml Intake Oral 480 ml 480 ml IV Total 1000 ml Output Urine Total 1 ml # Voids 1 Result Diagram: 07/18/17 0800 07/18/17 0800 Imaging Last Impressions Cyst Biopsy Asp-Paracentesis US 07/18/17 0000 Signed Impressions: Service Date/Time: Tuesday, July 18, 2017 08:19 - CONCLUSION: Uncomplicated ultrasound guided paracentesis. Lit Bravo MD Abdomen/Pelvis CT 07/17/17 1847 Signed Impressions: Service Date/Time: July 20:09 - CONCLUSION: 1. Worsening metastatic disease of the liver. 2. Moderate to large ascites has developed, exact etiology uncertain. 3. Splenomegaly not significantly changed. 4. Pancreatic head mass similar in size to the prior study. However, there is increasing biliary dilatation. The common bile duct is currently about 14 mm. Diego Wilburn MD ADDENDUM: Comparison is 05/26/2017 Diego Wiblurn MD Chest X-Ray 07/17/17 0000 Signed Impressions: Service Date/Time: Thursday, July 17, 2017 19:20 - CONCLUSION: No acute cardiopulmonary disease demonstrated. Diego Wilburn MD Objective Remarks GENERAL: Cachectic, female lying in bed SKIN: No rashes, ecchymoses or lesions. Cool and dry. CARDIOVASCULAR: Regular rate and rhythm without murmurs, gallops, or rubs. RESPIRATORY: Clear to auscultation. Breath sounds equal bilaterally. No wheezes , rales, or rhonchi. GASTROINTESTINAL: Abdomen soft, slightly tender over the left lower quadrant area where she had paracentesis MUSCULOSKELETAL: Extremities without clubbing, cyanosis, or edema. No joint tenderness, effusion, or edema noted. No calf tenderness. NEUROLOGICAL: Awake and alert. Cranial nerves II through XII intact. Motor and sensory grossly within normal limits. Normal speech. Procedures Paracentesis A/P Problem List: (1) Ascites ICD Code: R18.8 - Other ascites Status: Acute Assessment and Plan 1. Ascites/abdominal pain/abdominal distention with history of metastatic disease to the liver and hepatitis C. Improved status post paracentesis. Gram stain with no organisms cultures negative to date. Continue home oxycodone/ morphine Dilaudid for breakthrough pain. Consider diuretics if recurrent 2. Pancreatic cancer Patient's oncologist, Dr. De La Cruz consulted, appreciate recommendations FEN Regular diet Electrolytes: Replete when necessary DVT prophylaxis with SCD and early ambulation Discharge Planning Discharge patient to home Condition on discharge: Improved Regular Diet as tolerated Ad Miya activity Rx written: None Follow-up with primary care physician, medical and radiation oncology Problem Qualifiers (1) Ascites: Qualified Codes: R18.0 - Malignant ascites Julien Kyle MD Jul 19, 2017 11:37
--- NOTE | 2017-07-19 11:38 | HHI.DCPOC ---
Discharge Care Plan Diagnosis: (1) Ascites Your Health Problems Are: Difficulty with ADL Exercise Tolerance Goals to Promote Your Health * To prevent worsening of your condition and complications * To maintain your health at the optimal level Directions to Meet Your Goals Take your medications as prescribed Follow your dietary instruction Follow activity as directed Keep your appointments as scheduled Take your immunizations and boosters as scheduled If your symptoms worsen call your PCP, if no PCP go to Urgent Care Center or Emergency Room Smoking is Dangerous to Your Health. Avoid second hand smoke Call the 24-hour hour crisis hotline for domestic abuse at Julien Kyle MD Jul 19, 2017 11:38
[2017-07-19 12:00] VITALS: BP 115/63; PULSE 70; RESP 16; TEMP 98.7; O2SAT 97
== END 2017-07-19 14:18 | disposition home or self-care (01) | DRG 948 ==
LOC: NEPC 17:15 → NEDA 21:16 → NEDH 07-18 02:21 → N07A 07-18 13:21
PROVIDERS: ADMIT Internal Medicine; ATTEND Internal Medicine
PROC: 0W9G3ZZ Drainage of Peritoneal Cavity, Percutaneous Approach (ICD-10-PCS; principal; 2017-07-18)
DX: R18.8 Other ascites (principal); C25.9 Malignant neoplasm of pancreas, unspecified; C78.7 Secondary malignant neoplasm of liver and intrahepatic bile duct; B19.20 Unspecified viral hepatitis C without hepatic coma; Z87.891 Personal history of nicotine dependence; F12.90 Cannabis use, unspecified, uncomplicated; Z92.21 Personal history of antineoplastic chemotherapy
CPT/HCPCS: 49083; 71046; 74177; 80053; 81001; 82550; 82552; 82945; 83615; 83986; 84157; 84484; 85007; 85025; 85027; 85610; 85730; 87070; 87205; 93005; 96374; C1729; J1170; J2270; J7030; Q9967

== ENCOUNTER 2017-07-29 14:32 | Emergency (ER) | payer MEDICAID, OTHER ==
[~2017-07-29] VITALS: Ht 165.1 cm; Wt 56.8 kg
[~2017-07-29 14:32] MED LIST changes: +COLA100C5 PO; -LEVA500T33 PO; -LORA0.5T PO; -MEGE40SU PO; -MORP1TAB25 PO; -ONDA4TAB15; -PERI8.6T PO; -PROC10TA PO; -RANI150T PO; -ZOFR4TAB PO; -[UNRECOGNIZED DRUG - OTHER] SWISH-SWAL
[2017-07-29 14:47] VITALS: BP 150/93; PULSE 88; RESP 18; TEMP 98.9; O2SAT 98
[2017-07-29 16:06] LABS: AUTOMATED NEUTROPHIL # 3.4 TH/MM3 (1.8-7.7); BASOPHIL % 0.9 % (0.0-2.0); HEMATOCRIT 36.2 % (35.0-46.0); LYMPH % 10.7 % (9.0-44.0); LYMPHOCYTE # 0.5 TH/MM3 (1.0-4.8); MEAN CELL VOLUME 97.8 FL (80.0-100.0); MEAN CORPUSCULAR HEMOGLOBIN 32.5 PG (27.0-34.0); MEAN CORPUSCULAR HGB CONC 33.2 % (32.0-36.0); MEAN PLATELET VOLUME 8.8 FL (7.0-11.0); MONO % 6.7 % (0.0-8.0); MONOCYTE # 0.3 TH/MM3 (0-0.9); NEUT % 80.7 % (16.0-70.0); PLATELET COUNT 72 TH/MM3 (150-450); RED BLOOD COUNT 3.71 MIL/MM3 (4.00-5.30); RED CELL DISTRIBUTION WIDTH 15.3 % (11.6-17.2); WHITE BLOOD COUNT 4.2 TH/MM3 (4.0-11.0)
[2017-07-29 16:12] LABS: INTERNATIONAL NORMALIZED RATIO 1.4 RATIO; PROTHROMBIN TIME - PATIENT 14.5 SEC (9.8-11.6)
[2017-07-29 16:28] LABS: ALBUMIN 2.6 GM/DL (3.4-5.0); ALT (GPT) 36 U/L (10-53); AST (GOT) 67 U/L (15-37); BICARBONATE 27.3 MEQ/L (21.0-32.0); BLOOD UREA NITROGEN 8 MG/DL (7-18); CALCIUM 8.1 MG/DL (8.5-10.1); CHLORIDE 106 MEQ/L (98-107); CREATININE 0.69 MG/DL (0.50-1.00); GLOMERULAR FILTRATION RATE 88 ML/MIN (>89); GLUCOSE,RANDOM 158 MG/DL (74-106); SODIUM (NA) 140 MEQ/L (136-145)
[2017-07-29 16:30] LABS: ALKALINE PHOSPHATASE 111 U/L (45-117); TOTAL BILIRUBIN ADULT 0.7 MG/DL (0.2-1.0); TOTAL PROTEIN 6.7 GM/DL (6.4-8.2)
[2017-07-29] MEDS ORDERED: MORPHINE SULFATE 4 MG/ML INJ IV PUSH ONE (17:00)
--- NOTE | 2017-07-29 17:04 | PD ---
Data Data Last Documented VS Vital Signs Date Time Temp Pulse Resp B/P (MAP) Pulse Ox O2 Delivery O2 Flow Rate FiO2 07/29/17 14:47 98.9 88 18 150/93 (112) 98 Orders Orders Complete Blood Count With Diff (07/29/17 14:48) Comprehensive Metabolic Panel (07/29/17 14:48) Prothrombin Time / Inr (Pt) (07/29/17 14:48) Act Partial Throm Time (Ptt) (07/29/17 14:48) Lipase (07/29/17 14:48) Morphine Inj (Morphine Inj) (07/29/17 17:00) Ed Discharge Order (07/29/17 18:01) Labs Laboratory Tests Test 07/29/17 15:45 White Blood Count 4.2 TH/MM3 Red Blood Count 3.71 MIL/MM3 Hemoglobin 12.0 GM/DL Hematocrit 36.2 % Mean Corpuscular Volume 97.8 FL Mean Corpuscular Hemoglobin 32.5 PG Mean Corpuscular Hemoglobin Concent 33.2 % Red Cell Distribution Width 15.3 % Platelet Count 72 TH/MM3 Mean Platelet Volume 8.8 FL Neutrophils (%) (Auto) 80.7 % Lymphocytes (%) (Auto) 10.7 % Monocytes (%) (Auto) 6.7 % Eosinophils (%) (Auto) 1.0 % Basophils (%) (Auto) 0.9 % Neutrophils # (Auto) 3.4 TH/MM3 Lymphocytes # (Auto) 0.5 TH/MM3 Monocytes # (Auto) 0.3 TH/MM3 Eosinophils # (Auto) 0.0 TH/MM3 Basophils # (Auto) 0.0 TH/MM3 CBC Comment AUTO DIFF Differential Comment AUTO DIFF CONFIRMED Platelet Estimate LOW Platelet Morphology Comment NORMAL Prothrombin Time 14.5 SEC Prothromb Time International Ratio 1.4 RATIO Activated Partial Thromboplast Time 29.4 SEC Blood Urea Nitrogen 8 MG/DL Creatinine 0.69 MG/DL Random Glucose 158 MG/DL Total Protein 6.7 GM/DL Albumin 2.6 GM/DL Calcium Level 8.1 MG/DL Alkaline Phosphatase 111 U/L Aspartate Amino Transf (AST/SGOT) 67 U/L Alanine Aminotransferase (ALT/SGPT) 36 U/L Total Bilirubin 0.7 MG/DL Sodium Level 140 MEQ/L Potassium Level 3.9 MEQ/L Chloride Level 106 MEQ/L Carbon Dioxide Level 27.3 MEQ/L Anion Gap 7 MEQ/L Estimat Glomerular Filtration Rate 88 ML/MIN Lipase 81 U/L MDM Supervised Visit with AMY: Yes Narrative Course I, Dr. Harrison, have reviewed the advance practice practitioner's documentation and am in agreement, met with the patient face to face, made the diagnosis, and the medical decision making was done by me. *My assessment and Findings: Patient seen and examined by me in addition to Fatemeh Holman PA-C, this is an unfortunate 56-year-old female who presents emergency department with some mild abdominal pain with ascites. She has had a history of malignant ascites in the past from pancreatic cancer. The patient's abdomen is benign currently. She is not have any respiratory distress and is hemodynamically stable. After discussion with Dr. Vaca the patient apparently could be scheduled for an outpatient paracentesis as early as tomorrow and he recommends that she come by early tomorrow for an outpatient paracentesis. This was cleared with Dr. Taylor her oncologist, I have also discussed with her that she should ask Dr. Vaca to set up her regular appointment for her as this is probably going to be a recurring paracentesis. The patient is quite comfortable with this and would like to go home. She has pain medicine at home and I offered stronger medication and she declined. Disposition: 01 DISCHARGE HOME Condition: Stable Lit Harrison MD Jul 29, 2017 17:04
--- NOTE | 2017-07-29 17:05 | PD ---
HPI Chief Complaint: Abdominal Pain Time Seen by Provider: 16:39 Travel History International Travel<30 days: No Contact w/Intl Traveler<30days: No Traveled to known affect area: No History of Present Illness HPI 56y female with history of stage IV pancreatic adenocarcinoma with liver metastasis, hepatitis C presents emergency department complaining of abdominal pain and swelling that started 3 days after her last paracentesis. Says she has diffuse abdominal pain and swelling similar to previous episode. Patient denies any urinary complaints. Says she is having normal bowel movements other than the abnormal orange color. Says she has had similar stools previously. Denies fever, chills, chest pain, shortness breath, nausea, vomiting. Her oncologist is Dr. De La Cruz. Dr. Mendoza is her radiation oncologist. PFSH Past Medical History Cancer: Yes (mass in pancreas) Cardiovascular Problems: No Chemotherapy: Yes (03/21) Diabetes: No Endocrine: No Gastrointestinal Disorders: Yes Genitourinary: No Hepatitis: Yes (c) Hiatal Hernia: No Immune Disorder: No Kidney Stones: Yes (18 YEARS AGO) Musculoskeletal: No Neurologic: Yes Psychiatric: No Reproductive: No Respiratory: No Radiation Therapy: Yes (07/20) Thyroid Disease: No Menopausal: Yes : 2 Para: 1 : 1 Past Surgical History Abdominal Surgery: Yes (liver biopsy, pancreas biopsy, lymph node removed) Cardiac Surgery: No Ear Surgery: No Endocrine Surgery: No Eye Surgery: No Genitourinary Surgery: No Gynecologic Surgery: No Joint Replacement: No Oral Surgery: No Thoracic Surgery: Yes (right breast biopsy) Tonsillectomy: Yes Other Surgery: Yes (BILIARY STENT PLACEMENT, R BREAST BIOPSY) Social History Alcohol Use: No (PREVIOUSLY) Tobacco Use: No Substance Use: No Allergies-Medications (Allergen,Severity, Reaction): Coded Allergies: codeine (Unverified Allergy, Mild, Itching, 07/17/17) Reported Meds & Prescriptions Reported Meds & Active Scripts Active Reported Colace (Docusate Sodium) 100 Mg Capsule 100 Mg PO HS Ventolin Hfa 18 GM Inh (Albuterol Sulfate) 90 Mcg/Act Aer 2 Puff INH Q4H PRN Omeprazole 20 Mg Tab 20 Mg PO DAILY Oxycodone (Oxycodone HCl) 5 Mg Tab 5 Mg PO BID PRN Morphine ER (Morphine Sulfate) 15 Mg Tab 15 Mg PO BID Review of Systems Except as stated in HPI: all other systems reviewed are Neg Physical Exam Narrative GENERAL: Well developed, well-nourished in mild distress SKIN: Focused skin assessment warm/dry. HEAD: Atraumatic. Normocephalic. EYES: Pupils equal and round. No scleral icterus. No injection or drainage. ENT: No nasal bleeding or discharge. Mucous membranes pink and moist. NECK: Trachea midline. No JVD. No lymphadenopathy CARDIOVASCULAR: Regular rate and rhythm. No murmur appreciated. RESPIRATORY: No accessory muscle use. Clear to auscultation. Breath sounds equal bilaterally. GASTROINTESTINAL: Abdomen, distended but soft, normoactive bowel sounds. Diffusely tender without focal tenderness. No CVA tenderness MUSCULOSKELETAL: No obvious deformities. No clubbing. No cyanosis. No edema. NEUROLOGICAL: Awake and alert. No obvious cranial nerve deficits. Motor grossly within normal limits. Normal speech. PSYCHIATRIC: Appropriate mood and affect; insight and judgment normal. Data Data Last Documented VS Orders Orders Complete Blood Count With Diff (07/29/17 14:48) Comprehensive Metabolic Panel (07/29/17 14:48) Prothrombin Time / Inr (Pt) (07/29/17 14:48) Act Partial Throm Time (Ptt) (07/29/17 14:48) Lipase (07/29/17 14:48) Morphine Inj (Morphine Inj) (07/29/17 17:00) Ed Discharge Order (07/29/17 18:01) Labs Laboratory Tests Test 07/29/17 15:45 White Blood Count 4.2 TH/MM3 Red Blood Count 3.71 MIL/MM3 Hemoglobin 12.0 GM/DL Hematocrit 36.2 % Mean Corpuscular Volume 97.8 FL Mean Corpuscular Hemoglobin 32.5 PG Mean Corpuscular Hemoglobin Concent 33.2 % Red Cell Distribution Width 15.3 % Platelet Count 72 TH/MM3 Mean Platelet Volume 8.8 FL Neutrophils (%) (Auto) 80.7 % Lymphocytes (%) (Auto) 10.7 % Monocytes (%) (Auto) 6.7 % Eosinophils (%) (Auto) 1.0 % Basophils (%) (Auto) 0.9 % Neutrophils # (Auto) 3.4 TH/MM3 Lymphocytes # (Auto) 0.5 TH/MM3 Monocytes # (Auto) 0.3 TH/MM3 Eosinophils # (Auto) 0.0 TH/MM3 Basophils # (Auto) 0.0 TH/MM3 CBC Comment AUTO DIFF Differential Comment AUTO DIFF CONFIRMED Platelet Estimate LOW Platelet Morphology Comment NORMAL Prothrombin Time 14.5 SEC Prothromb Time International Ratio 1.4 RATIO Activated Partial Thromboplast Time 29.4 SEC Blood Urea Nitrogen 8 MG/DL Creatinine 0.69 MG/DL Random Glucose 158 MG/DL Total Protein 6.7 GM/DL Albumin 2.6 GM/DL Calcium Level 8.1 MG/DL Alkaline Phosphatase 111 U/L Aspartate Amino Transf (AST/SGOT) 67 U/L Alanine Aminotransferase (ALT/SGPT) 36 U/L Total Bilirubin 0.7 MG/DL Sodium Level 140 MEQ/L Potassium Level 3.9 MEQ/L Chloride Level 106 MEQ/L Carbon Dioxide Level 27.3 MEQ/L Anion Gap 7 MEQ/L Estimat Glomerular Filtration Rate 88 ML/MIN Lipase 81 U/L MDM Medical Decision Making Medical Screen Exam Complete: Yes Emergency Medical Condition: Yes Differential Diagnosis Ascites, medication noncompliance, pancreatic cancer Narrative Course 56y female presents to the ED c/o what she feels is recurrent fluid in her abdomen associated with diffuse, nonspecific abdominal pain. Says she called her oncologist's office, Dr. De La Cruz who states that he could see her tomorrow however, patient states that she "cannot take the pain anymore" and decided to come into the emergency department. After review the EMR, patient was admitted for ascites where she had a paracentesis without complications. She was evaluated by her oncologist, Dr. De La Cruz Patient has had a biliary stent, port, and h/o pancreatic biopsy. Denies alcohol or tobacco use. Labs are stable. Placed call to Dr. De La Cruz to determine if any further studies are requested and if performing the paracentesis is recommended. Please see Dr. Harrison's note regarding this conversation. Pt will obtain a paracentesis as an outpatient tomorrow. Diagnosis Primary Impression: Ascites Qualified Codes: R18.0 - Malignant ascites Referrals: Oncologist Additional Instructions: Follow the paracentesis tomorrow as discussed. If her symptoms persist or worsen return to the emergency department. Disposition: 01 DISCHARGE HOME Condition: Stable Fatemeh Holman Jul 29, 2017 17:05
== END 2017-07-29 18:12 | disposition home or self-care (01) ==
LOC: NED 14:32 → NEPC 18:12
DX: C25.9 Malignant neoplasm of pancreas, unspecified (principal); C78.7 Secondary malignant neoplasm of liver and intrahepatic bile duct; R18.0 Malignant ascites; Z86.19 Personal history of other infectious and parasitic diseases; Z88.5 Allergy status to narcotic agent; Z79.899 Other long term (current) drug therapy
CPT/HCPCS: 80053; 83690; 85025; 85610; 85730; 96374; 99284; J2270

== ENCOUNTER 2017-07-30 08:43 | Day surgery (SDC) | payer MEDICAID, OTHER ==
[2017-07-30] MEDS ORDERED: LIDOCAINE HCL 1% PF 30 ML VIAL ONE (09:59)
[2017-07-30 10:20] VITALS: BP 151/91; PULSE 74; RESP 18; TEMP 98.4; O2SAT 94
[2017-07-30 10:35] VITALS: BP 148/89; PULSE 77; RESP 17; O2SAT 95
--- NOTE | 2017-07-30 10:54 | PD.RAD ---
Post US Procedure Prog Note Pre Procedure Diagnosis: (1) Ascites (2) Pancreatic cancer (3) Abdominal pain Post Procedure Diagnosis: (1) Ascites (2) Pancreatic cancer (3) Abdominal pain Procedure Date: Jul 30, 2017 Supervising Radiologist: Bala Jansen Anesthesia: Local Plan of Activity Patient to Unit: ROPU Patient Condition: Fair See PACS Report for procedural detail/treatment Drainage Procedure Procedure 1 Imaging Guidance: Ultrasound Side: Left Procedure Type: Paracentesis Procedure: Removal Romanian: 6 Drainage: Suction Fluid Removal (CCs): 2000 Fluid Description: Clear, Yellow Bala Jansen MD Jul 30, 2017 10:54
--- NOTE | 2017-07-30 10:56 | RADRPT ---
EXAM DATE/TIME: 07/30/2017 10:06 [facility] COMPARISON: US GUIDED ABD PARACENTESIS, July 18, 2017, 8:19. INDICATIONS : Ascites. MEDICAL HISTORY : Chemotherapy. Pancreatic mass. Hepatitis C. SURGICAL HISTORY : Liver Biopsy. Pancreatic biospy. Lymph node removed. Right breast biopsy. Biliary stent placement . ENCOUNTER: Subsequent ACUITY: 2 days PAIN SCORE: 5/10 LOCATION: Left lower quadrant FLUID: Total volume of 2000 cc of clear, yellow fluid was removed. Fluid was discarded. Paracentesis was therapeutic only. Post procedure scanning reveals no hematoma or other complication. TECHNIQUE: 1. Ultrasound guidance for abdominal paracentesis. 2. Paracentesis. The risks, benefits, and alternatives to ultrasound guided paracentesis were explained to the patient in detail including the risk of bleeding and infection. Written and verbal informed consent was obt ained. With the patient on the ultrasound table, ultrasound imaging was used to select the most appropriate approach for paracentesis. Overlying skin was prepped and draped in the usual sterile fashion and wi th a local anesthetic, a dermatotomy was made with an 11 blade scalpel. A 6 [place] [id number] ca theter was introduced into the peritoneal cavity and fluid was collected. The patient tolerated the procedure well and left the ultrasound suite in stable condition. CONCLUSION: Uncomplicated ultrasound guided paracentesis. Bala Jansen MD on July 30, 2017 at 10:53 Board Certified Radiologist. This report was verified electronically.
== END 2017-07-30 10:50 | disposition home or self-care (01) ==
LOC: HRAD 08:43 → HRIP 08:46 → HRAD 10:50
PROVIDERS: ATTEND Emergency Medicine
DX: R18.8 Other ascites (principal); C25.9 Malignant neoplasm of pancreas, unspecified; B19.20 Unspecified viral hepatitis C without hepatic coma; R10.9 Unspecified abdominal pain
CPT/HCPCS: 49083; C1729

== ENCOUNTER 2017-08-28 08:23 | Day surgery (SDC) | payer MEDICAID ==
[2017-08-28 09:42] LABS: INTERNATIONAL NORMALIZED RATIO 1.9 RATIO; PROTHROMBIN TIME - PATIENT 19.3 SEC (9.8-11.6)
[2017-08-28 11:13] VITALS: BP 110/93; PULSE 78; RESP 18; TEMP 98.2; O2SAT 99
[2017-08-28] MEDS ORDERED: ALBUMIN 25% INJ 0 ML IV ONE (12:30)
[2017-08-28 13:00] VITALS: BP 143/86; PULSE 70; RESP 18; TEMP 98.5; O2SAT 96
[2017-08-28] MEDS ORDERED: LIDOCAINE HCL 1% 20 ML VIAL ONE (13:07)
[2017-08-28 13:15] VITALS: BP 118/81; PULSE 78; RESP 18; TEMP 98.2; O2SAT 97
--- NOTE | 2017-08-28 13:49 | RADRPT ---
EXAM DATE/TIME: 08/28/2017 11:16 [facility] COMPARISON: US GUIDED ABD PARACENTESIS, July 30, 2017, 10:06. INDICATIONS : Ascites. MEDICAL HISTORY : Hepatitis. Pancreatic cancer. Kidney stones. UTI. SURGICAL HISTORY : Tonsillectomy. Right breast biopsy. Pancreas biopsy. Lymph node removed. Biliary stent placement. ENCOUNTER: Subsequent ACUITY: 1 month PAIN SCORE: 3/10 LOCATION: Right lower quadrant FLUID: Total volume of 2,600 cc of clear, yellow fluid was removed. Fluid was discarded. Paracentesis was therapeutic only. Post procedure scanning reveals no hematoma or other complication. TECHNIQUE: 1. Ultrasound guidance for abdominal paracentesis. 2. Paracentesis. The risks, benefits, and alternatives to ultrasound guided paracentesis were explained to the patient in detail including the risk of bleeding and infection. Written and verbal informed consent was obt ained. With the patient on the ultrasound table, ultrasound imaging was used to select the most appropriate approach for paracentesis. Overlying skin was prepped and draped in the usual sterile fashion and wi th a local anesthetic, a dermatotomy was made with an 11 blade scalpel. A 6 [place] Xod-[id number]-qieijuzm ca theter was introduced into the peritoneal cavity and fluid was collected. The patient tolerated the procedure well and left the ultrasound suite in stable condition. CONCLUSION: Uncomplicated ultrasound guided paracentesis. Lit Bravo MD on August 28, 2017 at 13:44 Board Certified Radiologist. This report was verified electronically.
== END 2017-08-28 13:40 | disposition home or self-care (01) ==
LOC: HRAD 08:23 → HRIP 08:28 → CLAB 13:40
PROVIDERS: ATTEND Internal Medicine
DX: R18.8 Other ascites (principal); C78.7 Secondary malignant neoplasm of liver and intrahepatic bile duct; C25.0 Malignant neoplasm of head of pancreas; D70.9 Neutropenia, unspecified; B18.2 Chronic viral hepatitis C; D64.9 Anemia, unspecified; E86.0 Dehydration; L29.9 Pruritus, unspecified
CPT/HCPCS: 36415; 49083; 85610; C1729

== ENCOUNTER 2017-10-10 09:56 | Day surgery (SDC) | payer OTHER, MEDICAID ==
--- NOTE | 2017-10-10 10:45 | PD.RAD ---
Post US Procedure Prog Note Pre Procedure Diagnosis: (1) Ascites Post Procedure Diagnosis: (1) Ascites Procedure Date: Oct 10, 2017 Supervising Radiologist: Diego Arriola Estimated blood loss: minimal. Anesthesia: Local Plan of Activity Patient to Unit: ROPU Patient Condition: Good See PACS Report for procedural detail/treatment Drainage Procedure Procedure 1 Imaging Guidance: Ultrasound Side: Right Procedure Type: Paracentesis Fluid Removal (CCs): 6200 Fluid Description: Clear, Yellow Plan to ROPU then discharge in 30 minutes. Diego Arriola MD Oct 10, 2017 10:45
[2017-10-10] MEDS ORDERED: ALBUMIN 25% INJ 0 ML IV ONE (11:30)
[2017-10-10] MEDS ORDERED: LIDOCAINE HCL 1% PF 30 ML VIAL ONE (11:38)
[2017-10-10 11:40] VITALS: BP 117/68; PULSE 75; RESP 18; TEMP 98.4; O2SAT 97
[2017-10-10 11:55] VITALS: BP 108/64; PULSE 76; RESP 18; O2SAT 96
--- NOTE | 2017-10-10 12:06 | RADRPT ---
EXAM DATE: 10/10/2017 11:34 AM EDT AGE/SEX: 57 years / Female INDICATIONS: Ascites. CLINICAL DATA: This is the patient's subsequent encounter. Patient reports that signs and symptoms h ave been present for 3 months and indicates a pain score of 0/10. MEDICAL/SURGICAL HISTORY: . Chemotherapy. Pancreatic mass. Hepatitis C. . Liver Biopsy. Pancre atic biopsy. Lymph node removed. Right breast biopsy. Biliary stent placement. [place] [facility] [place] 08/28/2017. . FLUID: Total volume of 6,200 cc of clear, yellow fluid was removed. Fluid was discarded. Paracentesis was t herapeutic only. . . TECHNIQUE: Ultrasound guidance for abdominal paracentesis. Paracentesis. The risks, benefits, and alternatives to ultrasound guided paracentesis were explained to the patient in detail including the risk of bleeding and infection. Written and verbal informed consent was obt ained. With the patient on the ultrasound table, ultrasound imaging was used to select the most appropriate approach for paracentesis. Overlying skin was prepped and draped in the usual sterile fashion and wi th a local anesthetic, a dermatotomy was made with an 11 blade scalpel. A 6 [place] [id number]-C-icoflfyd ca theter was introduced into the peritoneal cavity and fluid was collected. Post procedure scanning reveals no hematoma or other complication. The patient tolerated the procedu re well and left the ultrasound suite in stable condition. CONCLUSION: Uncomplicated paracentesis, as above. Electronically signed by: Diego Arriola MD 10/10/2017 12:04 PM EDT
== END 2017-10-10 12:30 | disposition home or self-care (01) ==
LOC: HRAD 09:56 → HRIP 09:59 → HRAD 12:30
PROVIDERS: ATTEND Internal Medicine
DX: R18.8 Other ascites (principal)
CPT/HCPCS: 49083; 96365; 96366; C1729